=== PATIENT | male | born 1985 | race Caucasian/White ===

== ENCOUNTER 2017-01-18 11:10 | Emergency (ER) | payer BC, OTHER ==
[2017-01-18] MEDS ORDERED: HYOSCYAMINE SULFATE 0.125 MG TAB PO ONE (11:29)
[2017-01-18] MEDS ORDERED: MAG HYDROX/AL HYDROX/SIMETH 30 ML UDCUP PO ONE (11:29)
[2017-01-18] MEDS ORDERED: NS 1,000 ML IV ONE (11:29)
[2017-01-18] MEDS ORDERED: LIDOCAINE 2% VISCOUS 15 ML UDCUP PO ONE (11:29)
--- NOTE | 2017-01-18 11:36 | EDPHY ---
H & P Stated Complaint: Chest tightness for 5 days HPI/ROS: CHIEF COMPLAINT: Chest Pain HISTORY OF PRESENT ILLNESS: Patient complains of chest pain that started 6 days ago. This is a retrosternal chest pain. It has been constant duration. Waxes and wanes. [id number]. Sometimes worse with exertion. Sometimes not. No worse with palpation of the chest. Does radiate to the left thigh. No nausea or vomiting. No real shortness of breath. No abdominal pain. No trauma or injury. No history of venous thrombolic event. He does have recent flights 2 in from the [facility]. No lower extremity erythema edema or pain. Does not take any medications other than Propecia. No other associated complaints or modifying factors. factors. FAMILY HISTORY CARDIAC: None PRIOR CARDIAC WORKUP: None REVIEW OF SYSTEMS: Ten systems reviewed and are negative unless otherwise noted in the HPI EXAMINATION: General Appearance: Alert, no distress Head: normocephalic, atraumatic Eyes: Pupils equal and round, no conjunctival pallor or injection ENT, Mouth: Mucous membranes moist. Uvula midline. Neck: Normal inspection, supple, non-tender. Trachea Respiratory: Lungs are clear to auscultation. No wheezing, rhonchi or crackles. No tenderness with palpation of the sternum Cardiovascular: Regular rate and rhythm. No murmur Gastrointestinal: Abdomen is soft and nontender. No distention rigidity. No epigastric tenderness Back: non-tender, no bony abnormalities Neurological: A&O, nonfocal, normal gait Skin: Warm and dry, no rash Extremities: Nontender, no pedal edema Psychiatric: Mood and affect normal DIFFERENTIAL DIAGNOSES: Including but not limited to in no particular order: Acute Chest Pain, ACS, Stable Angina, Pneumonia, PE, duodenitis, gastritis, esophagitis, GERD MDM: 11:30 a.m. Retrosternal chest pain of 6 days duration. Most likely suspect esophagitis or GERD. Vital signs stable. EKG and labs are pending. 12:50 p.m. Epigastric and retrosternal chest pain. I suspect this is esophagitis versus gastritis. Laboratory studies are negative including a negative troponin and D- dimer. The troponin is sensitive as he has had pain for 6 days. Chest x-ray shows clear. Vital signs stable. He has no risk factors for coronary artery disease at this age. Discharged home with symptomatic medications including a prescription for Prilosec. Follow up with primary care physician to discuss further care and possibility of a GI referral. He is comfortable this plan discharged home stable condition. EKG: Interpreted by Dr. Rizvi Normal sinus rhythm with no acute ischemia SUPERVISION: This patient was independently evaluated without direct examination by the attending physician. Case was discussed with attending physician. Case discussed with Dr. Rizvi Source: Patient Exam Limitations: No limitations - Personal History Current Tetanus/Diphtheria Vaccine: Yes Current Tetanus Diphtheria and Acellular Pertussis (TDAP): Yes - Medical/Surgical History Hx Asthma: No Hx Chronic Respiratory Disease: No Hx Diabetes: No Hx Cardiac Disease: No Hx Renal Disease: No Hx Cirrhosis: No Hx Alcoholism: No Hx HIV/AIDS: No Hx Splenectomy or Spleen Trauma: No - Social History Smoking Status: Never smoked Constitutional: Initial Vital Signs Temperature (C) 98.1 F 01/18/17 11:13 Heart Rate 67 01/18/17 11:13 Respiratory Rate 14 01/18/17 11:13 Blood Pressure 151/94 H 01/18/17 11:13 O2 Sat (%) 97 01/18/17 11:13 O2 Delivery Mode Room Air Allergies/Adverse Reactions: No Known Allergies Allergy (Unverified 01/18/17 11:16) Home Medications: Medication Instructions Recorded Omeprazole [Prilosec 20 mg] 20 mg PO DAILY #30 capsule. 01/18/17 Medical Decision Making - Diagnostics Imaging Results: Imaging Impressions Chest X-Ray 01/18/17 11:30 Impression: No acute pulmonary disease. - Data Points Laboratory Results: Laboratory Results 01/18/17 11:32 01/18/17 11:32 01/18/17 01/18/17 01/18/17 11:32 11:32 11:32 WBC 4.62 10^3/uL 10^3/uL (3.80-9.50) RBC 5.29 10^6/uL 10^6/uL (4.40-6.38) Hgb 16.6 g/dL g/dL (13.7-17.5) Hct 47.1 % % (40.0-51.0) MCV 89.0 fL fL (81.5-99.8) MCH 31.4 pg pg (27.9-34.1) MCHC 35.2 g/dL g/dL (32.4-36.7) RDW 12.5 % % (11.5-15.2) Plt Count 200 10^3/uL 10^3/uL (150-400) MPV 11.0 fL fL (8.7-11.7) Neut % (Auto) 48.9 % % (39.3-74.2) Lymph % (Auto) 39.0 % % (15.0-45.0) Miller % (Auto) 8.4 % % (4.5-13.0) Eos % (Auto) 2.4 % % (0.6-7.6) Baso % (Auto) 1.1 % % (0.3-1.7) Nucleat RBC Rel Count 0.0 % % (0.0-0.2) Absolute Neuts (auto) 2.26 10^3/uL 10^3/uL (1.70-6.50) Absolute Lymphs (auto) 1.80 10^3/uL 10^3/uL (1.00-3.00) Absolute Monos (auto) 0.39 10^3/uL 10^3/uL (0.30-0.80) Absolute Eos (auto) 0.11 10^3/uL 10^3/uL (0.03-0.40) Absolute Basos (auto) 0.05 10^3/uL 10^3/uL (0.02-0.10) Absolute Nucleated RBC 0.00 10^3/uL 10^3/uL (0-0.01) Immature Gran % 0.2 % % (0.0-1.1) Immature Gran # 0.01 10^3/uL 10^3/uL (0.00-0.10) PT 13.0 SEC SEC (12.0-15.0) INR 0.99 (0.83-1.16) APTT 27.9 SEC SEC (23.0-38.0) D-Dimer < 0.27 ug/mLFEU ug/mLFEU (0.00-0.50) Sodium 141 mEq/L mEq/L (134-144) Potassium 3.7 mEq/L mEq/L (3.5-5.2) Chloride 99 mEq/L mEq/L (97-110) Carbon Dioxide 28 mEq/l mEq/l (22-31) Anion Gap 14 mEq/L mEq/L (8-16) BUN 18 mg/dL mg/dL (7-23) Creatinine 0.9 mg/dL mg/dL (0.7-1.3) Estimated GFR > 60 Glucose 135 mg/dL H mg/dL (70-100) Calcium 10.0 mg/dL mg/dL (8.5-10.4) Troponin I < 0.012 ng/mL ng/mL (0-0.034) Lipase 88.0 IU/L IU/L (23-300) Medications Given: Discontinued Medications Al Hydroxide/Mg Hydroxide (Maalox Susp) 30 ml PO ONCE ONE Stop: 01/18/17 11:30 Last Admin: 01/18/17 11:49 Dose: 30 ml Hyoscyamine Sulfate (Levsin, Hyomax-Sl) 0.25 mg PO ONCE ONE Stop: 01/18/17 11:30 Last Admin: 01/18/17 11:47 Dose: 0.25 mg Sodium Chloride (Ns) 1,000 mls @ 0 mls/hr IV ONCE ONE; Wide Open PRN Reason: Protocol Stop: 01/18/17 11:30 Last Admin: 01/18/17 11:50 Dose: 1,000 mls Lidocaine (Lidocaine 2% Viscous) 15 ml PO ONCE ONE Stop: 01/18/17 11:30 Last Admin: 01/18/17 11:48 Dose: 15 ml Departure - Departure Disposition: Home, Routine, Self-Care Clinical Impression: Esophagitis Chest pain Qualifiers: Chest pain type: unspecified Qualified Code(s): R07.9 - Chest pain, unspecified GERD (gastroesophageal reflux disease) Qualifiers: Esophagitis presence: with esophagitis Qualified Code(s): K21.0 - Gastro- esophageal reflux disease with esophagitis Condition: Good Instructions: Chest Pain (ED), Esophagitis (ED) Additional Instructions: Contact primary care physician for further care. Return here for any worsening pain, fever, chills, shortness of breath Referrals: NONE *PRIMARY CARE P,. [Primary Care Provider] - As per Instructions Jurgen Patton DO [Doctor of Osteopathy] - As per Instructions Prescriptions: Omeprazole [Prilosec 20 mg] 20 mg PO DAILY #30 capsule.
--- NOTE | 2017-01-18 11:39 | CPEKG ---
Heart Rate: 64 RR Interval: 938 P-R Interval: 196 QRSD Interval: 100 QT Interval: 384 QTC Interval: 396 P Brandt: 74 QRS Brandt: 92 T Wave Brandt: 37 EKG Severity - BORDERLINE ECG - EKG Impression: SINUS RHYTHM EKG Impression: CONSIDER RIGHT VENTRICULAR HYPERTROPHY Electronically Signed By: Angelita Rizvi 18-Jan-2017 14:49:48
[2017-01-18 11:59] LABS: % IMMATURE GRANULYOCYTES 0.2 % (0.0-1.1); ABSOLUTE IMMATURE GRANULOCYTES 0.01 10^3/uL (0.00-0.10); ADD DIFF? NO; ADD MORPH? NO; ADD SCAN? NO; ATYPICAL LYMPHOCYTE FLAG 0 (0-99); FRAGMENT RBC FLAG 0 (0-99); HEMATOCRIT 47.1 % (40.0-51.0); HEMOGLOBIN 16.6 g/dL (13.7-17.5); INR 0.99 (0.83-1.16); LEFT SHIFT FLG 0 (0-99); LIPEMIA HEMOLYSIS FLAG 90 (0-99); MEAN CELL HEMOGLOBIN 31.4 pg (27.9-34.1); MEAN CELL HEMOGLOBIN CONCENTR. 35.2 g/dL (32.4-36.7); PLATELET CLUMPS FLAG 0 (0-99); PLATELET COUNT 200 10^3/uL (150-400); RED BLOOD CELL COUNT 5.29 10^6/uL (4.40-6.38); RED CELL DISTRIBUTION WIDTH 12.5 % (11.5-15.2)
[2017-01-18 12:00] LABS: APTT 27.9 SEC (23.0-38.0)
[2017-01-18 12:04] LABS: ANION GAP 14 mEq/L (8-16); CARBON DIOXIDE 28 mEq/l (22-31); CHLORIDE 99 mEq/L (97-110); CREATININE 0.9 mg/dL (0.7-1.3); GLOMERULAR FILTRATION RATE > 60; GLUCOSE 135 mg/dL (70-100); POTASSIUM 3.7 mEq/L (3.5-5.2); SODIUM 141 mEq/L (134-144)
[2017-01-18 12:15] LABS: TROPONIN I < 0.012 ng/mL (0-0.034)
[2017-01-18 13:07] VITALS: BP 138/67; PULSE 81; RESP 18; TEMP 98.2; O2SAT 96
== END 2017-01-18 13:18 | disposition home or self-care (01) ==
DX: K21.0 Gastro-esophageal reflux disease with esophagitis (principal); E86.9 Volume depletion, unspecified